=== PATIENT | female | born 1975 | race Caucasian/White ===

== ENCOUNTER 2023-07-19 17:30 | Outpatient (CLI) | payer BC, SELFPAY ==
--- NOTE | 2023-07-19 17:40 | CRLHL7_ITS ---
For Patients: As a result of the Century Cures Act, medical imaging exams and procedure reports are released immediately into your electronic medical record. You may view this report before your referring provider. If you have questions, please contact your health care provider. BILATERAL SCREENING MAMMOGRAM WITH COMPUTER-AIDED DETECTION AND TOMOSYNTHESIS TECHNIQUE: CC and MLO views were obtained. These mammographic images have been obtained using full-field digital technique. These mammographic images were interpreted with the benefit of computer-aided detection. Breast Tomosynthesis was used in this interpretation. COMPARISON FILM: 08/04/21, 06/30/20, 05/08/19. FINDINGS: The breasts are heterogeneously dense, which may obscure small masses IMPRESSION: There is no radiographic evidence for malignancy. ASSESSMENT: BI-RADS Category 1: Negative RECOMMENDATION: Routine screening mammogram in 1 year. A lay language report of this examination will be provided to the patient. Steven Thomson M.D. Diagnostic Radiologist [email or web address] Transcribed: 4:56 p.maría hastings/Dictated by: Steven Thomson MD @ 07/21/2023 10:55:00 AM (Electronically Signed)
== END 2023-07-19 17:31 | disposition home or self-care (01) ==
LOC: MAMMO 17:31
PROVIDERS: PCP Family Medicine; Visit Provider Family Medicine
DX: Z12.31 Encounter for screening mammogram for malignant neoplasm of breast (principal); R92.2 Inconclusive mammogram
CPT/HCPCS: 77063; 77067

== ENCOUNTER 2024-10-23 04:31 | Emergency (ER) | payer BC, SELFPAY ==
--- OUTSIDE RECORDS SUMMARY | 2024-10-23 04:35 | XMS_ITS | Clinical Summary ---
Author Organization [facility] Address [address], [place] [address] Care Team Providers Care Balance Engineer Name Role Phone Doug Ayala MD Primary Care Provider [phone] Source Comments You are receiving this document as you are listed as the primary care provider,follow-up provider, or the patient has been referred to you for consultation.This is in compliance with the Medicare and[facility] EHR Incentive Program,which states Providers who transition their patient to another setting of careor provider of care or refers their patient to another provider of care shouldprovide summary care record for each transition of care or referral. [employer] Allergies Active Allergy Reactions Criticality Noted Date Comments Amoxicillin 06/25/2003 PN: LW Reaction: swelling Erythromycin 02/04/2003 PN: LW Reaction: Swelling Penicillins 02/04/2003 PN: LW Reaction: Swelling Sulfa Antibiotics 02/04/2003 PN: LW Reaction: Swelling Medications unknown medication Indications: PN: 05/04/2010 Active Vit-Fe Fumarate-FA ( OR) Take 1 tablet by mouth daily (every 24 hours). 09/26/2009 Active ALBUterol sulfate HFA 108 (90 Base) MCG/ACT inhaler Inhale 2 Puffs every 4 hours as needed for Wheezing. 1 Each 10/21/2024 Active predniSONE (DELTASONE) 20 MG tablet Take 2 Tablets (40 mg) by mouth daily for 3 days, THEN 1 Tablet (20 mg) daily for 3 days, THEN 0.5 Tablets (10 mg) daily for 4 days. 11 Tablet 10/21/2024 Active benzonatate (TESSALON) 200 MG capsule Take 1 Capsule (200 mg) by mouth three times a day as needed for Cough for up to 10 days. 30 Capsule 10/21/2024 Active Hospital, Clinic, or Other Facility Administered Medication Ordered Dose Route Frequency Start Date End Date Status albuterol 2.5 mg/3 mL (0.083%) (PROVENTIL) nebulizer solution 2.5 mgIndications:Wheezing 2.5 mg IN ONCE 10/21/2024 10/21/2024 En ded Active Problems No known active problems Encounters Date Type Department Care Team Description 10/21/2024 1:25 PM CDT Ancillary Procedure [facility] [id number] [place] [phone] Frances Herron MD Wheezing 10/21/2024 1:00 PM CDT Office Visit [place] [address] [facility] [id number] [place] [phone] Frances Herron MD Wheezing; Acute bronchitis, unspecified organism from Last 3 Months Immunizations Immunization Administration Dates Next Due Flu Vac Preserv Free (3+yrs) 04/15/2008,04/26/20 07 TDAP (ADACEL) 06/07/2008 Social History Tobacco Use Types Packs/Day Years Used Date Smoking Tobacco: Never Smokeless Tobacco: Never Tobacco Cessation:Counseling Given: Not Answered Comments No Sex and Gender Information Value Date Recorded Sex Assigned at Not on file Legal Sex Female 5:00 AM CDT Gender Identity Not on file Sexual Orientation Not on file Last Filed Vital Signs Vital Sign Reading Time Taken Comments Blood Pressure 131/86 10/21/2024 12:29 PM CDT Pulse 83 10/21/2024 12:29 PM CDT Temperature 37.2 C (98.9 F) 10/21/2024 12:29 PM CDT Respiratory Rate 16 10/21/2024 12:29 PM CDT Oxygen Saturation 100% 10/21/2024 12:29 PM CDT Inhaled Oxygen Concentration - - Weight 82.1 kg (181 lb) 05/04/2010 3:52 PM UNION LABORER C : 82.1kg Height 172.7 cm (5' 8) 06/07/2008 10:02 AM UNION LABORER C: 172.7cm Body Mass Index 27.52 06/07/2008 10:02 AM UNION LABORER Plan of Treatment Health Maintenance Due Date Last Done Comments Colon Cancer Screening Plan Due 1973 Hep C Screening (Preventive Services) 1975 Mammogram 1973 HepB Vaccine (1) 1992 Adult Preventive Visit 10/29/1999 10/28/1998 Cervical Cancer Screening Due 08/02/2009 08/01/2009, 06/07/2008, 08/22/2006, Additional history exists Cholesterol 2018 10/28/1998 DTaP/Tdap/Td Vaccine (2 - Tdap) 06/07/2018 06/07/2008 Pneumococcal Vaccine 50+ Yrs (1 of 1 - PCV) 2023 Zoster/Shingles Vaccine (1 of 2) 2023 COVID-19 Vaccine (1 - season) 2024 Influenza Vaccine (Season Ended) 2025 03/30/2012, 04/06/2011, 04/15/2008, Additional history exists HIV Screening (Preventive Services) Completed 08/01/2009, 08/22/2006, 04/09/2004 HepA Vaccine Aged Out No longer eligi ble based on patient's age to complete this topic Hib Vaccine Aged Out No longer eligi ble based on patient's age to complete this topic IPV (Polio) Vaccine Aged Out No longe r eligible based on patient's age to complete this topic MCV4 Vaccine Aged Out No longer eligi ble based on patient's age to complete this topic Meningococcal B Vaccine Aged Out No l onger eligible based on patient's age to complete this topic Procedures Procedure Name Priority Date/Time Associated Diagnosis Comments XR CHEST 2 VIEWS STAT 10/21/2024 1:29 PM CDT Wheezing HIV ANTIBODY Routine 08/01/2009 3:58 PM UNION LABORER ANATOMICAL PATH LIQUID BASED Routine 08/01/2009 2:50 PM UNION LABORER CHOLESTEROL, TOTAL AND HDL Routine 10/28/1998 5:17 PM CDT from Last 3 Months or Most Recently Relevant to Health Maintenance Results * XR Chest 2 Views (10/21/2024 1:29 PM CDT) Anatomical Region Laterality Modality Chest, Lung Digital Radiogra phy 10/21/2024 1:23 PM CDT Impressions 10/21/2024 1:32 PM CDT Clear chest. Narrative 10/21/2024 1:32 PM CDT COMPARISON: 06/02/2007. FINDINGS: Normal cardiomediastinal silhouette and pulmonary vasculature. The lungs appear clear. No pneumothorax or pleural effusion. Bony thorax is unremarkable. Procedure Note Lucius Moore MD - 10/21/2024 COMPARISON: 06/02/2007. FINDINGS: Normal cardiomediastinal silhouette and pulmonary vasculature.The lungs appear clear. No pneumothorax or pleural effusion. Bony thoraxis unremarkable. IMPRESSION Clear chest. us Frances Herron MD RAD GD Final Result * HIV ANTIBODY (08/01/2009 3:58 PM UNION LABORER) HIV 1/HIV 2 Non Reac Non Reac HP CONVERSION 08/01/2009 3:58 PM UNION LABORER Neelima Vázquez AVIATION ELECTRONIC WARFARE OPERATOR, COMPUTER PERIPHERAL EQUIPMENT OPERATOR LAB_1 Fi nal Result HP CONVERSION * Pap Smear (08/01/2009 2:50 PM UNION LABORER) Pap Smear SEE TEXT No normal range HP CONVERSION Comment: Final GYNECOLOGICAL CYTOLOGY REPORT Pathology #: [id number] Date Obtained: 08/01/2009 Date Received: 08/05/2009 INTERPRETATION/RESULTS: Negative for Intraepithelial Lesion or Malignancy SPECIMEN ADEQUACY: Satisfactory for Evaluation. Endocervical cells/transformation zone component present. Verified on 08/05/2009 by ZURDO GANDHI(ASCP) (electronic signature) CLINICAL NOTES: LMP: 06/16/2009. SPECIMEN TYPE: CERVICAL WITH REFLEX TO HPV IF ASCUS End of Report 08/01/2009 2:50 PM UNION LABORER us Neelima Delon Gurpreet AVIATION ELECTRONIC WARFARE OPERATOR, COMPUTER PERIPHERAL EQUIPMENT OPERATOR LAB_1 Fi nal Result HP CONVERSION * (ABNORMAL) CHOLESTEROL, TOTAL AND HDL (10/28/1998 5:17 PM CDT) Cholesterol 211(H) <200 mg/dl [facility] Cholesterol Result should not be interpreted without the patient's history of cardiovascular risk factors. [facility] HDL 56 >35 mg/dl [facility] 10/28/1998 5:17 PM CDT 10/28/1998 5:20 PM CDT Otilia Francois Luke AVIATION ELECTRONIC WARFARE OPERATOR, COMPUTER PERIPHERAL EQUIPMENT OPERATOR LAB_1 Fin al Result Performing Organization Address City/[facility]/ZIP Co de Phone Number [facility] [address] [phone] from Last 3 Months or Most Recently Relevant to Health Maintenance Insurance BCBS PREFERRED GOLD Care Teams Balance Engineer Relationship Specialty Start Date End Date Doug Ayala MD [address] [facility] [address] [place] [address] [facility] - General 09/14/10
--- OUTSIDE RECORDS SUMMARY | 2024-10-23 04:35 | XMS_ITS | Encounter Summary ---
Author Organization [facility] Address [address] [place] [address] Care Team Providers Care Greenhouse Assistant Name Role Phone Doug Ayala MD Primary Care Provider [phone] Encounter Details Date Type Department Care Team (Latest Contact Info) Description 08/22/1999 Orders Only Aminata Jordan, FAMILY SERVICE COUNSELOR, HORSE RACE STARTER [address] [place] [address] Social History Tobacco Use Types Packs/Day Years Used Date Smoking Tobacco: Never Assessed Comments Unknown Sex and Gender Information Value Date Recorded Sex Assigned at Not on file Legal Sex Female 5:00 AM CDT Gender Identity Not on file Sexual Orientation Not on file documented as of this encounter Plan of Treatment Not on file documented as of this encounter Visit Diagnoses Not on filedocumented in this encounter Care Teams Greenhouse Assistant Relationship Specialty Start Date End Date Doug Ayala MD [address] [facility] [address] [place] [address] PCP - General 09/14/10 documented as of this encounter
--- OUTSIDE RECORDS SUMMARY | 2024-10-23 04:35 | XMS_ITS | Encounter Summary ---
[facility] Address [address], [place] [address] Care Team Providers Care Structural Fitter Name Role Phone Doug Ayala MD Primary Care Provider [phone] Reason for Referral * Procedure/Equipment (Routine) - Incomplete Specialty Diagnoses / Procedures Referred By Contac t Referred To Contact Diagnoses Wheezing Procedures XR Chest 2 Views Frances Herron MD [address] [place] [address] Phone: tel: fax: Referral ID Status Reason Start Date Expiration Date V isits Requested Visits Authorized [id number] Incomplete 10/21/2024 01/20/2026 1 1 Reason for Visit * Reason Comments Cough Encounter Details Date Type Department Care Team (Late st Contact Info) Description 10/21/2024 1:00 PM CDT Office Visit [place] [address] [facility] [address] [place] [address] Frances Herron MD [address] [place] [address] Wheezing; Acute bronchitis, unspecified organism Social History Tobacco Use Types Packs/Day Years Used Date Smoking Tobacco: Never Smokeless Tobacco: Never Tobacco Cessation:Counseling Given: Not Answered Comments No Sex and Gender Information Value Date Recorded Sex Assigned at Not on file Legal Sex Female 5:00 AM CDT Gender Identity Not on file Sexual Orientation Not on file documented as of this encounter Last Filed Vital Signs Vital Sign Reading Time Taken Comments Blood Pressure 131/86 10/21/2024 12:29 PM CDT Pulse 83 10/21/2024 12:29 PM CDT Temperature 37.2 C (98.9 F) 10/21/2024 12:29 PM CDT Respiratory Rate 16 10/21/2024 12:29 PM CDT Oxygen Saturation 100% 10/21/2024 12:29 PM CDT Inhaled Oxygen Concentration - - Weight - - Height - - Body Mass Index - - documented in this encounter Patient Instructions * Patient Instructions* Frances Herron MD - 10/21/2024 1:00 PM CDT The modern definition of bronchitis is inflammation of the airways typically caused by a viral infection, so an antibiotic won't make it better. The inflammation makes the cough worse, and the cough makes the inflammation worse. We typically treat this with steroids which reduces the swelling and mucus production in the airway so you can breath more freely and cough less, and the cough can resolve. Prednisone is the steroid medication. [facility] use of steroids can have significant complications but short term use typically has only mild side effects. Some people may feel wired or restless, warm and flushed, and increased appetite is common. Take the medication with food to decrease stomach irritation and decrease salt intake as it can cause some fluid retention. If you are having trouble sleeping you can take some benadryl at bedtime. Do not take ibuprofen while you are taking the prednisone as they are very similar and can both bother the stomach. You can take tylenol if needed for pain or fever. An albuterol inhaler has also been prescribed for your wheezing. Take 2 puffs every 4 hours as needed if you find that with it you can breathe more easily, cough less or cough less harshly. You can stop taking it when you are feeling better. You should start to notice some improvement in several days and gradually get better over the course of the medication. When you finish the medication the cough may not be totally gone but should continue to improve and resolve soon there after. If it does not please don't hesitate to be seen again. If you are not improving as expected also please be seen again. documented in this encounter Nursing Notes * Olga Avina, RN - 10/21/2024 1:00 PM CDT Cough, chest congestion as well as sinus pain and ear congestion. Cough is productive with yellow sputum. Did get an OTC inhaler which helps a little. documented in this encounter Plan of Treatment Not on file documented as of this encounter Results * XR Chest 2 Views (10/21/2024 [...] Frances Herron MD RAD GD Final Result documented in this encounter Visit Diagnoses Diagnosis Wheezing Acute bronchitis, unspecified organism Wheezing documented in this encounter Administered Medications Inactive Administered Medications - up to 3 most recent administrations Medication Order MAR Action Action Date Dose Rate Site albuterol 2.5 mg/3 mL (0.083%) (PROVENTIL) nebulizer solution 2.5 mg 2.5 mg, Inhalation, ONCE, On 10/21/24 at 1315, For 1 dose, Administer VIA RT NebulizationIndications:Wheezing Given 10/21/2024 12:53 PM CDT 2.5 mg documented in this encounter Care Teams Structural Fitter Relationship Specialty Start Date End Date Doug Ayala MD [address] [facility] [address] [place], [place] [address] PCP - General 09/14/10 documented as of this encounter
--- OUTSIDE RECORDS SUMMARY | 2024-10-23 04:35 | XMS_ITS | Encounter Summary ---
[facility] Address [address], [place] [address] Care Team Providers Care Household Appliance Installer Name Role Phone Doug Ayala MD Primary Care Provider [phone] Reason for Visit * Procedure/Equipment (Routine) - Incomplete Specialty Diagnoses / Procedures Referred By Christi t Referred To Contact Diagnoses Wheezing Procedures XR Chest 2 Views Frances Herron MD [address] [place] [address] Phone: tel: fax: Referral ID Status Reason Start Date Expiration Date V isits Requested Visits Authorized [id number] Incomplete 10/21/2024 01/20/2026 1 1 Encounter Details Date Type Department Care Team (Late st Contact Info) Description 10/21/2024 1:25 PM CDT Ancillary Procedure [facility] [address] [place] [address] Frances Herron MD [address] [place] [address] Wheezing Social History Tobacco Use Types Packs/Day Years Used Date Smoking Tobacco: Never Smokeless Tobacco: Never Comments No Sex and Gender Information Value Date Recorded Sex Assigned at Not on file Legal Sex Female 5:00 AM CDT Gender Identity Not on file Sexual Orientation Not on file documented as of this encounter Plan of Treatment Not on file documented as of this encounter Procedures Procedure Name Priority Date/Time Associated Diagnosis Comments XR CHEST 2 VIEWS STAT 10/21/2024 1:29 PM CDT Wheezing documented in this encounter Results * XR Chest 2 [...] in this encounter Visit Diagnoses Diagnosis Wheezing documented in this encounter Care Teams Household Appliance Installer Relationship Specialty Start Date End Date Doug [facility]ala MD [address] [facility] [address] [place] [address] PCP - General 09/14/10 documented as of this encounter
--- OUTSIDE RECORDS SUMMARY | 2024-10-23 04:35 | XMS_ITS | Encounter Summary ---
Author Organization [facility] Address [address] [address] Care Team Providers Care Hot Dip Plating Supervisor Name Role Phone Doug Ayala MD Primary Care Provider [phone] Encounter Details Date Type Department Care Team (Latest Contact Info) Description 12/04/1999 Orders Only [facility], [place] [address] Social History Tobacco Use Types Packs/Day Years [...] on filedocumented in this encounter Care Teams Hot Dip Plating Supervisor Relationship Specialty Start Date End Date Doug Ayala MD [address] [facility] [address] [place] [address] PCP - General 09/14/10 documented as of this encounter
--- OUTSIDE RECORDS SUMMARY | 2024-10-23 04:35 | XMS_ITS | Encounter Summary ---
Author Organization [facility] Address [address] [address] Care Team Providers Care Certified Novell Engineer Name Role Phone Doug Ayala MD Primary Care Provider [phone] Encounter Details Date Type Department Care Team (Latest Contact Info) Description 06/05/1997 Orders Only Janeth Gamboa MD [facility] [address] [place] [address] Social History Tobacco Use Types Packs/Day Years [...] on filedocumented in this encounter Care Teams Certified Novell Engineer Relationship Specialty Start Date End Date Doug Ayala MD [address] [facility] [address] [place] [address] PCP - General 09/14/10 documented as of this encounter
--- OUTSIDE RECORDS SUMMARY | 2024-10-23 04:35 | XMS_ITS | Encounter Summary ---
Author Organization [facility] Address [address] [address] Care Team Providers Care Manager Housekeeping Name Role Phone Doug Ayala MD Primary Care Provider [phone] Encounter Details Date Type Department Care Team (Latest Contact Info) Description 07/28/1998 Orders Only Otilia Butler, COOKER SODA, WRIST LINER [facility] [address] [place] [phone] Social History Tobacco Use Types Packs/Day Years [...] on filedocumented in this encounter Care Teams Manager Housekeeping Relationship Specialty Start Date End Date Doug Ayala MD [address] [facility] [address] [place] [address] PCP - General 09/14/10 documented as of this encounter
--- OUTSIDE RECORDS SUMMARY | 2024-10-23 04:35 | XMS_ITS | Encounter Summary ---
Author Organization [facility] Address [address], [place] [address] Care Team Providers Care Suction Dredge Dumping Supervisor Name Role Phone Doug Ayala MD Primary Care Provider [phone] Encounter Details Date Type Department Care Team (Latest Contact Info) Description 08/23/1997 Orders Only Africa Waddell, PROFILE SAW SETUP OPERATOR, CNM Social History Tobacco Use Types Packs/Day Years [...] on filedocumented in this encounter Care Teams Suction Dredge Dumping Supervisor Relationship Specialty Start Date End Date Doug Ayala MD [address] [facility] [address] [place] [address] PCP - General 09/14/10 documented as of this encounter
--- OUTSIDE RECORDS SUMMARY | 2024-10-23 04:35 | XMS_ITS | Encounter Summary ---
Author Organization [facility] Address [address] [address] Care Team Providers Care Investment Trader Name Role Phone Doug Ayala MD Primary Care Provider [phone] Encounter Details Date Type Department Care Team (Latest Contact Info) Description 01/15/1997 Orders Only Alexa Garg MD [facility] [address] [place] [phone] Social History Tobacco Use Types Packs/Day Years [...] on filedocumented in this encounter Care Teams Investment Trader Relationship Specialty Start Date End Date Doug Ayala MD [address] [facility] [address] [place] [address] PCP - General 09/14/10 documented as of this encounter
[2024-10-23 04:37] VITALS: BP 146/78; PULSE 89; RESP 18; TEMP 37.8; O2SAT 94; BMI 24.6
--- NOTE | 2024-10-23 04:46 | ED.GENADULT ---
HPI - General Adult General Chief complaint: Chest Pain Stated complaint: chest pain Time Seen by Provider: 10/23/24 04:46 History of Present Illness HPI narrative: Pt woke up around 0100 with tremors and was super thirsty. Pt went down to drink water and noticed severe left arm and shoulder pain and felt like she couldn't breathe. Pt states she felt she was having a panic attack . Pt was dx with bronchitis a week ago and has a cough. 49-year-old woman presenting to the emergency department with concern of shakes. Sounds like received a course of prednisone and doxycycline. Has had some cough and feels a little short of breath. Shaking that went up and down her body. Temperature was 101.9?. Initially took some acetaminophen and then some ibuprofen. And had pain that started in her left chest radiate up into her neck. Said she panicked and came in. Is really alarmed by the tremors or shakes she experienced. Still some pain in that left lower chest with movement or deep breath. Has been training for a Cross[employer] competition Related Data Home Medications ?Medication ?Instructions ?Recorded ?Confirmed albuterol sulfate 90 mcg/actuation 2 puff inhalation Q4H PRN wheezing 10/23/24 10/23/24 aerosol inhaler benzonatate 100 mg capsule 100 - 200 mg PO 3XD PRN cough 10/23/24 10/23/24 prednisone 20 mg tablet mg PO 10/23/24 Allergies Allergy/AdvReac Type Severity Reaction Status Date / Time penicillin V Allergy Severe Anaphylaxis Verified 10/23/24 04:43 Sulfa (Sulfonamide Allergy Severe Generalized Verified 10/23/24 04:43 Antibiotics) Edema erythromycin base Allergy Intermediate Hives Verified 05/27/23 08:46 Macrolide Antibiotics Allergy Intermediate Hives Verified 05/27/23 08:46 Review of Systems Status of ROS: Reports: 6 or more systems reviewed and unremarkable except as noted in History and below [facility] Medical History Bronchitis ?J40 - Bronchitis, not specified as acute or chronic (ICD-10) Seasonal allergies ?J30.2 - Other seasonal allergic rhinitis (ICD-10) Varicose veins of lower extremity (12/29/11) ?I83.90 - Asymptomatic varicose veins of unspecified lower extremity (ICD-10) Food allergy ?Z91.018 - Allergy to other foods (ICD-10) Surgical History History of colonoscopy ?Z98.890 - Other specified postprocedural states (ICD-10) History of nevus excision ?Z98.890 - Other specified postprocedural states (ICD-10) ?Z87.2 - Personal history of diseases of the skin and subcutaneous tissue (ICD-10) History of oral surgery (2001) ?Z98.890 - Other specified postprocedural states (ICD-10) Family History Sister Colonic polyp, Onset Age: 44 Brother Colonic polyp, Onset Age: 43 Maternal Grandmother Myocardial infarction Coronary artery disease Mother Lung cancer, Onset Age: 60 Diabetes Depression Father Epilepsy Prostate cancer, Onset Age: 65 Other Family history of melanoma Social History Narrative: , 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 Subtly anxious. Well muscled. Breathing easily. Skin is warm and dry. She is well-perfused. No lower extremity edema. Demonstrated pleuritic discomfort. Resolved squeak in the left lower lung Trace systolic murmur reports that suspected to be heard before. Heart in regular rate. Well perfused peripherally. No leg pain or swelling. Const: Vital Signs, click to edit/add: Vital Signs - 24 hr 10/23/24 04:37 10/23/24 06:26 Temperature 100.1 F H 98.9 F Pulse Rate [Right Pulse Oximeter] 89 89 Respiratory Rate 18 18 Blood Pressure [Ri ght Upper Arm] 146/78 H 110/63 Pulse Oximetry 94 95 Oxygen Delivery Me thod Room Air Room Air Documenting provider has reviewed patient's vital signs: yes Course Vital Signs Vital signs: Initial Vital Signs Temperature 100.1 F H 10/23/24 04:37 Temperature Source Temporal Artery Scan 10/23/24 04:37 Pulse Rate 89 10/23/24 04:37 Respiratory Rate 18 10/23/24 04:37 Blood Pressure 146/78 H 10/23/24 04:37 Blood Pressure Mean 100 10/23/24 04:37 Blood Pressure Position Supine 10/23/24 04:37 Pulse Oximetry 94 10/23/24 04:37 Oxygen Delivery Method Room Air 10/23/24 04:37 Vital Signs Temperature 100.1 F H 10/23/24 04:37 Pulse Rate 89 10/23/24 04:37 Respiratory Rate 18 10/23/24 04:37 Blood Pressure 146/78 H 10/23/24 04:37 Pulse Oximetry 94 10/23/24 04:37 Oxygen Delivery Method Room Air 10/23/24 04:37 Temperature 98.9 F 10/23/24 06:26 Pulse Rate 89 10/23/24 06:26 Respiratory Rate 18 10/23/24 06:26 Blood Pressure 110/63 10/23/24 06:26 Pulse Oximetry 95 10/23/24 06:26 Oxygen Delivery Method Room Air 10/23/24 06:26 Medications Administered Medications: Discontinued Medications Generic Name Dose Route Start Last Admin Trade Name Freq PRN Reason Stop Dose Admin Sodium Chloride 1,000 mls @ 1,000 mls/hr 10/23/24 04:55 10/23/24 06:20 0.9 % Sodium Chloride 1000 Ml IV 10/23/24 05:54 Infused .Q1H ONE Infusion Ceftriaxone Sodium 1 gm/ 100 mls @ 200 mls/hr 10/23/24 06:26 10/23/24 07:33 Sodium Chloride IVPB 10/23/24 06:27 Infused ONCE ONE Infusion Medical Decision Making MDM Narrative Medical decision making narrative: Appears to have experienced some sort of rigors. May have been related to fever or other more significant infection. Would reimage for further evidence of pneumonia. Blood cultures. Infectious symptoms and level of usual activity would seem to point away from pulmonary embolus. Chest x-ray independently reviewed by me shows some haziness, consolidation? In the left lower lung. Radiology over-read below INDICATION: Fever. Shortness of breath. COMPARISON: None available. TECHNIQUE: 2 views. FINDINGS: Medical Devices: None. Lung Volumes: Adequate inspiration. No significant atelectasis. Lungs: Left lower lobe opacity consistent with pneumonia in the correct clinical setting. Incidental 6 mm right basilar nodular opacities on the frontal view of the chest superimposed upon the anterior 5th rib. Attention on follow-up is recommended. Pleura and Pleural spaces: No significant pleural effusion. No pneumothorax. Mediastinum: Normal cardiomediastinal silhouette. Bony Thorax and Soft Tissues: No significant incidental findings. IMPRESSION: 1. Left lower lobe opacity consistent with pneumonia in the correct clinical setting. 2. Incidental 6 mm right basilar nodular opacities on the frontal view of the chest superimposed upon the anterior 5th rib. Attention on follow-up is recommended. RECOMMENDATION: SHORT INTERVAL FOLLOW-UP CHEST RADIOGRAPHS ARE RECOMMENDED IN 6-8 WEEKS TO DOCUMENT CLEARING OF THE LEFT LOWER LOBE OPACITY AND REASSESS THE POSSIBLE 6 MM RIGHT BASILAR NODULE. IF THE LATTER FINDING PERSISTS THEN CT OF THE CHEST IS RECOMMENDED FOR CONFIRMATION AND FURTHER CHARACTERIZATION. Dictated by Marques Starks MD @ 10/23/2024 6:05:51 AM With findings and chest x-ray and now with white count of over 17,000 think does require little more aggressive treatment for likely pneumonia. Oxygenation remains in the mid to slightly low 90s. Does not appear to be any particular distress respiratory mead. SIRS but no sepsis? I think can still be treated successfully outpatient. Did receive IV hydration and given a g of Rocephin IV. See patient discharge plan for further discussion Radiology recommending follow-up imaging review Stay well-hydrated. Be seen for persistent increasing shortness of breath, uncontrolled chest pain. Discontinue the doxycycline at this point. You could continue the prednisone for another 2 or 3 days if you like but more importantly will be the levofloxacin that I am prescribing. Contrary to as prescribed in [facility], I think 5 days should be sufficient. Medical Records Medical records reviewed: Yes I reviewed the patient's medical records Lab Data Lab results reviewed: Yes I reviewed the patient's lab results Labs: Lab Results 10/23/24 Range/Units 05:10 WBC 17.37 H (4.50-11.00) K/uL RBC 3.84 L (4.00-5.20) m/uL Hgb 11.8 L (12.0-16.0) gm/dL Hct 35.2 (33.0-51.0) % MCV 92 (80-100) fL MCH 31 (26-34) pg MCHC 34 (32-36) gm/dL RDW Coeff of Shelia 12.8 (11.5-15.5) % Plt Count 232 (140-440) K/uL Neut % (Auto) 88.7 H (42.0-72.0) % Lymph % (Auto) 7.1 L (20-44) % Geary % (Auto) 2.5 (0.0-11.0) % Eos % (Auto) 0.4 (0.0-7.0) % Baso % (Auto) 0.2 (0.0-3.0) % Neut # (Auto) 15.40 H (1.7-7.0) K/uL Lymph # (Auto) 1.20 (0.90-2.90) K/uL Geary # (Auto) 0.40 (0.00-0.90) K/UL Eos # (Auto) 0.10 (0.00-0.50) K/uL Baso # (Auto) 0.00 (0.00-0.30) K/uL Abs Immat Gran (auto) 0.20 (0.00-0.30) K/uL Imm/Tot Granulo (auto) 1.1 % Sodium 135 (135-149) mmol/L Potassium 3.3 L (3.6-5.1) mmol/L Chloride 104 (96-114) mmol/L Carbon Dioxide 22 (20-32) mmol/L Anion Gap 9 (7-15) mEq/L BUN 22 (7-30) mg/dL Creatinine 0.9 (0.5-1.5) mg/dL Estimated Creat Clear 71.91 Estimated GFR 77 ml/min Glucose 102 (60-115) mg/dL Calcium 8.5 (8.4-10.6) mg/dL C-Reactive Protein 1.0 (0.5-1.0) mg/dL SARS-CoV-2 (PCR) Negative SARS-CoV-2 (Negative) Influenza Type A (PCR) Negative PCR FLU A (Negative) Influenza Type B (PCR) Negative PCR FLU B (Negative) RSV (PCR) Negative PCR RSV (Negative) ECG Data Attestation: I personally reviewed and interpreted this ECG as follows: (Normal sinus rhythm at a rate of 88.) Discharge Plan Discharge Clinical Impression: Pneumonia Patient Disposition: Home, Self-Care Condition: Improved Additional Instructions: Stay well-hydrated. Be seen for persistent increasing shortness of breath, uncontrolled chest pain. Discontinue the doxycycline at this point. You could continue the prednisone for another 2 or 3 days if you like but more importantly will be the levofloxacin that I am prescribing. Contrary to as prescribed in [facility], I think 5 days should be sufficient. Prescriptions: No Action prednisone 20 mg tablet PO benzonatate 100 mg capsule 100 - 200 mg PO 3XD PRN (Reason: cough) albuterol sulfate 90 mcg/actuation HFA aerosol inhaler 2 puff INHALATION Q4H PRN (Reason: wheezing) Follow Up/Referrals: Cynthia Millard MD [Primary Care Provider] - Stand Alone Forms: [employer] Info Instructions
--- NOTE | 2024-10-23 04:55 | CRLHL7_ITS ---
For Patients: As a result of the Cures Act, medical imaging exams and procedure reports are released immediately into your electronic medical record. You may view this report before your referring provider. If you have questions, please contact your health care provider. INDICATION: Fever. Shortness of breath. COMPARISON: None available. TECHNIQUE: 2 views. FINDINGS: Medical Devices: None. Lung Volumes: Adequate inspiration. No significant atelectasis. Lungs: Left lower lobe opacity consistent with pneumonia in the correct clinical setting. Incidental 6 mm right basilar nodular opacities on the frontal view of the chest superimposed upon the anterior 5th rib. Attention on follow-up is recommended. Pleura and Pleural spaces: No significant pleural effusion. No pneumothorax. Mediastinum: Normal cardiomediastinal silhouette. Bony Thorax and Soft Tissues: No significant incidental findings. IMPRESSION: 1. Left lower lobe opacity consistent with pneumonia in the correct clinical setting. 2. Incidental 6 mm right basilar nodular opacities on the frontal view of the chest superimposed upon the anterior 5th rib. Attention on follow-up is recommended. RECOMMENDATION: SHORT INTERVAL FOLLOW-UP CHEST RADIOGRAPHS ARE RECOMMENDED IN 6-8 WEEKS TO DOCUMENT CLEARING OF THE LEFT LOWER LOBE OPACITY AND REASSESS THE POSSIBLE 6 MM RIGHT BASILAR NODULE. IF THE LATTER FINDING PERSISTS THEN CT OF THE CHEST IS RECOMMENDED FOR CONFIRMATION AND FURTHER CHARACTERIZATION. Dictated by Marques Starks MD @ 10/23/2024 6:05:51 AM (Electronically Signed)
[2024-10-23 05:16] LABS: Basophils Percent Auto 0.2 % (0.0-3.0); Eosinophils Percent Auto 0.4 % (0.0-7.0); Hematocrit 35.2 % (33.0-51.0); Hemoglobin* 11.8 gm/dL (12.0-16.0); Immature Granulocytes Pct Auto 1.1 %; Lymphocytes Percent Auto 7.1 % (20-44); Mean Corpuscular HGB Conc 34 gm/dL (32-36); Mean Corpuscular Hemoglobin 31 pg (26-34); Mean Corpuscular Volume 92 fL (80-100); Monocytes Percent Auto 2.5 % (0.0-11.0); Neutrophils Percent Auto 88.7 % (42.0-72.0); Platelet Count* 232 K/uL (140-440); RDW Coefficient of Variation % 12.8 % (11.5-15.5); Red Blood Count 3.84 m/uL (4.00-5.20); White Blood Count* 17.37 K/uL (4.50-11.00)
[2024-10-23 05:19] LABS: Slide Review Reflex No
[2024-10-23] MEDS: 0.9 % SODIUM CHLORIDE 1000 ml 1,000 ML IV (05:21)
[2024-10-23 05:34] LABS: Chloride* 104 mmol/L (96-114); Potassium* 3.3 mmol/L (3.6-5.1); Sodium* 135 mmol/L (135-149)
--- OUTSIDE RECORDS SUMMARY | 2024-10-23 05:35 | XMS_ITS | Encounter Summary ---
Author Organization [facility] Address [address], [place] [address] Care Team Providers Care Minilab Operator Name Role Phone Doug Ayala MD Primary Care Provider [phone] Encounter Details Date Type Department Care Team (Latest Contact Info) Description 07/28/1998 Orders Only Otilia Butler, BODY WORKER, HATCHERY MAN [facility] [address] [place] [id number] Social History Tobacco Use Types Packs/Day Years [...] on filedocumented in this encounter Care Teams Minilab Operator Relationship Specialty Start Date End Date Doug Ayala MD [address] [facility] [address] [place] [address] PCP - General 09/14/10 documented as of this encounter
--- OUTSIDE RECORDS SUMMARY | 2024-10-23 05:35 | XMS_ITS | Encounter Summary ---
Author Organization [facility] Address [address], [place] [address] Care Team Providers Care Stripper Printed Circuit Boards Name Role Phone Doug Ayala MD Primary Care Provider [phone] Encounter Details Date Type Department Care Team (Latest Contact Info) Description 01/15/1997 Orders Only Alexa Garg MD [facility] [address] [place] [id number] Social History Tobacco Use Types Packs/Day Years [...] on filedocumented in this encounter Care Teams Stripper Printed Circuit Boards Relationship Specialty Start Date End Date Doug Ayala MD [address] [facility] [address] [place] [address] PCP - General 09/14/10 documented as of this encounter
--- OUTSIDE RECORDS SUMMARY | 2024-10-23 05:35 | XMS_ITS | Encounter Summary ---
Author Organization [facility] Address [address] [address] Care Team Providers Care Transfer Man Name Role Phone Doug Ayala MD Primary Care Provider [phone] Encounter Details Date Type Department Care Team (Latest Contact Info) Description 12/04/1999 Orders Only [employer], [place] [address] Social History Tobacco Use Types Packs/Day Years [...] on filedocumented in this encounter Care Teams Transfer Man Relationship Specialty Start Date End Date Doug Ayala MD [address] [facility] [address] [place] [address] PCP - General 09/14/10 documented as of this encounter
--- OUTSIDE RECORDS SUMMARY | 2024-10-23 05:35 | XMS_ITS | Encounter Summary ---
Author Organization [facility] Address [address], [place] [address] Care Team Providers Care Floating Operator Name Role Phone Doug Ayala MD Primary Care Provider [phone] Encounter Details Date Type Department Care Team (Latest Contact Info) Description 06/05/1997 Orders Only Janeth Gamboa MD [facility] [address] [place] [address] Social History Tobacco Use Types Packs/Day Years [...] on filedocumented in this encounter Care Teams Floating Operator Relationship Specialty Start Date End Date Doug Ayala MD [address] [facility] [address] [place] [address] PCP - General 09/14/10 documented as of this encounter
--- OUTSIDE RECORDS SUMMARY | 2024-10-23 05:35 | XMS_ITS | Clinical Summary ---
Author Organization [facility] Address [address], [place] [address] Care Team Providers Care Waste Baler Name Role Phone Doug Ayala MD Primary Care Provider [phone] Source Comments You are receiving this document as you are listed as the primary care provider,follow-up provider, or the patient has been referred to you for consultation.This is in compliance with the Medicare andUpper [facility] Medical Centercaal EHR Incentive Program,which states Providers who transition their patient to another setting of careor provider of care or refers their patient to another provider of care shouldprovide summary care record for each transition of care or referral. [employer] Allergies Active Allergy Reactions Criticality Noted Date [...] Description 10/21/2024 1:25 PM CDT Ancillary Procedure [facility] [id number] [place] [id number] Frances Herron MD Wheezing 10/21/2024 1:00 PM CDT Office Visit [place] [address] [facility] [id number] [place] [phone] Frances Herron MD Wheezing; Acute bronchitis, unspecified [...] 82.1 kg (181 lb) 05/04/2010 3:52 PM POSTDOCTORAL FELLOW C : 82.1kg Height 172.7 cm (5' 8) 06/07/2008 10:02 AM POSTDOCTORAL FELLOW C: 172.7cm Body Mass Index 27.52 06/07/2008 10:02 AM POSTDOCTORAL FELLOW Plan of Treatment Health Maintenance Due Date [...] Wheezing HIV ANTIBODY Routine 08/01/2009 3:58 PM POSTDOCTORAL FELLOW ANATOMICAL PATH LIQUID BASED Routine 08/01/2009 2:50 PM POSTDOCTORAL FELLOW CHOLESTEROL, TOTAL AND HDL Routine 10/28/1998 5:17 [...] Result * HIV ANTIBODY (08/01/2009 3:58 PM POSTDOCTORAL FELLOW) HIV 1/HIV 2 Non Reac Non Reac HP CONVERSION 08/01/2009 3:58 PM POSTDOCTORAL FELLOW Neelima Vázquez THERAPIST RRT, SPECIAL EDUCATION ASSISTANT LAB_1 Fi nal Result HP CONVERSION * Pap Smear (08/01/2009 2:50 PM POSTDOCTORAL FELLOW) Pap Smear SEE TEXT No normal range HP CONVERSION Comment: Final GYNECOLOGICAL CYTOLOGY REPORT Pathology #: [id number] Date Obtained: 08/01/2009 Date Received: 08/05/2009 INTERPRETATION/RESULTS: Negative for Intraepithelial Lesion or Malignancy SPECIMEN ADEQUACY: Satisfactory for Evaluation. Endocervical cells/transformation zone component present. Verified on 08/05/2009 by ZURDO GANDHI(ASCP) (electronic signature) CLINICAL NOTES: LMP: 06/16/2009. SPECIMEN TYPE: CERVICAL WITH REFLEX TO HPV IF ASCUS End of Report 08/01/2009 2:50 PM POSTDOCTORAL FELLOW us Neelima Delon Gurpreet THERAPIST RRT, SPECIAL EDUCATION ASSISTANT LAB_1 Fi nal Result HP CONVERSION * (ABNORMAL) CHOLESTEROL, TOTAL AND HDL (10/28/1998 5:17 PM CDT) Cholesterol 211(H) <200 mg/dl [facility] Cholesterol Result should not be interpreted without the patient's history of cardiovascular risk factors. [facility] HDL 56 >35 mg/dl [facility] 10/28/1998 5:17 PM CDT 10/28/1998 5:20 PM CDT Otilia Francois Luke THERAPIST RRT, SPECIAL EDUCATION ASSISTANT LAB_1 Fin al Result Performing Organization Address City/[facility]/ZIP Co de Phone Number [facility] [address] [phone] from Last 3 Months or Most Recently Relevant to Health Maintenance Insurance [employer] PREFERRED GOLD Care Teams Waste Baler Relationship Specialty Start Date End Date Doug Ayala MD [address] [facility] [address] [place] [address] [facility] - General 09/14/10
--- OUTSIDE RECORDS SUMMARY | 2024-10-23 05:35 | XMS_ITS | Encounter Summary ---
Author Organization [facility] Address [address], [place] [address] Care Team Providers Care Home Security Alarm Installer Name Role Phone Doug Ayala MD Primary Care Provider Reason for Visit * Procedure/Equipment (Routine) - Incomplete Specialty Diagnoses / Procedures Referred By Christi t Referred To Contact Diagnoses Wheezing Procedures XR Chest 2 Views Frances Herron MD [address] [place] [address] Phone: tel: fax: Referral ID Status Reason Start Date Expiration Date V isits Requested Visits Authorized [id number] Incomplete 10/21/2024 01/20/2026 1 1 Encounter Details Date Type Department Care Team (Late st Contact Info) Description 10/21/2024 1:25 PM CDT Ancillary Procedure [facility] [address] [place] [address] Frances Herron MD [address] [place] [address] Wheezing Social History Tobacco Use [...] Wheezing documented in this encounter Care Teams Home Security Alarm Installer Relationship Specialty Start Date End Date Doug Ayaal MD [address] [facility] [address] [place] [address] PCP - General 09/14/10 documented as of this encounter
--- OUTSIDE RECORDS SUMMARY | 2024-10-23 05:35 | XMS_ITS | Encounter Summary ---
Author Organization [facility] Address [address], [place] [address] Care Team Providers Care Kiln Tender Name Role Phone Doug Ayala MD Primary Care Provider [phone] Reason for Referral * Procedure/Equipment (Routine) - Incomplete Specialty Diagnoses / Procedures Referred By Contac t Referred To Contact Diagnoses Wheezing Procedures XR Chest 2 Views Frances Herron MD [address] [place] [address] Phone: tel: fax: Referral ID Status Reason Start Date Expiration Date V isits Requested Visits Authorized [id number] Incomplete 10/21/2024 01/20/2026 1 1 Reason for Visit * Reason Comments Cough Encounter Details Date Type Department Care Team (Late st Contact Info) Description 10/21/2024 1:00 PM CDT Office Visit [place] [address] [facility] [address] [place] [address] Frances Herron MD [address] [place] [address] Wheezing; Acute bronchitis, unspecified organism [...] can resolve. Prednisone is the steroid medication. snf use of steroids can have significant complications [...] mg documented in this encounter Care Teams Kiln Tender Relationship Specialty Start Date End Date Doug Ayala MD [address] [facility] [address] [place], [place] [address] PCP - General 09/14/10 documented as of this encounter
--- OUTSIDE RECORDS SUMMARY | 2024-10-23 05:35 | XMS_ITS | Encounter Summary ---
Author Organization [facility] Address [address], [place] [address] Care Team Providers Care Irish Moss Bleacher Name Role Phone Doug Ayala MD Primary Care Provider [phone] Encounter Details Date Type Department Care Team (Latest Contact Info) Description 08/23/1997 Orders Only Africa Waddell, EXTERNAL RELATIONS DIRECTOR, CNM Social History Tobacco Use Types Packs/Day [...] on filedocumented in this encounter Care Teams Irish Moss Bleacher Relationship Specialty Start Date End Date Doug Ayala MD [address] [facility] [address] [place] [address] PCP - General 09/14/10 documented as of this encounter
--- OUTSIDE RECORDS SUMMARY | 2024-10-23 05:35 | XMS_ITS | Encounter Summary ---
Author Organization [facility] Address [address] [place] [address] Care Team Providers Care Radiology Transcriptionist Name Role Phone Doug Ayala MD Primary Care Provider [phone] Encounter Details Date Type Department Care Team (Latest Contact Info) Description 08/22/1999 Orders Only Aminata Jordan, DEPUTY SHER[employer], CONTROL SYSTEM MANAGER [address] [place] [address] Social History Tobacco Use Types Packs/Day Years [...] on filedocumented in this encounter Care Teams Radiology Transcriptionist Relationship Specialty Start Date End Date Doug Ayala MD [address] [facility] [address] [place] [address] PCP - General 09/14/10 documented as of this encounter
[2024-10-23 05:38] LABS: Anion Gap 9 mEq/L (7-15); Blood Urea Nitrogen* 22 mg/dL (7-30); Calcium* 8.5 mg/dL (8.4-10.6); Carbon Dioxide* 22 mmol/L (20-32); Creatinine* 0.9 mg/dL (0.5-1.5); Est. Creatinine Clearance* 71.91; Estimated Glomerular Filt Rate 77 ml/min; Glucose* 102 mg/dL (60-115)
[2024-10-23 05:56] LABS: PCR FLU A Negative PCR FLU A (Negative); PCR FLU B Negative PCR FLU B (Negative); PCR RSV Negative PCR RSV (Negative); SARS PCR* Negative SARS-CoV-2 (Negative)
[2024-10-23 06:26] VITALS: BP 110/63; PULSE 89; RESP 18; TEMP 37.2; O2SAT 95
[2024-10-23] MEDS: cefTRIAXone 1 GM in 0.9 % SODIUM CHLORIDE Mini-bag 100 ML IVPB (06:57)
== END 2024-10-23 07:58 | disposition home or self-care (01) ==
PROVIDERS: Emergency Provider Family Medicine; PCP Family Medicine
DX: J18.9 Pneumonia, unspecified organism (principal)
CPT/HCPCS: 36415; 71046; 80048; 85025; 86140; 87040; 87631; 96365; 99284; J0696; J7030